=== PATIENT | female | born 1990 | race Caucasian/White ===

== ENCOUNTER 2016-08-02 21:52 | Emergency (ER) | payer MEDICAID, OTHER ==
[~2016-08-02] VITALS: Ht 167.6 cm; Wt 102.8 kg
[2016-08-02 21:58] VITALS: Ht 167.6 cm; Wt 102.8 kg
[2016-08-02 23:20] LABS: URINE BLOOD (Dip) POC 1+ (NEGATIVE)
[2016-08-02] MEDS ORDERED: CEPHALEXIN 500 MG CAP PO STA (23:22)
[2016-08-02] MEDS ORDERED: PHEN-538 PO (23:23)
[2016-08-02] MEDS ORDERED: CEPH-443 PO (23:23)
--- NOTE | 2016-08-02 23:28 | ERD ---
ER Documentation Chief Complaint Date/Time DATE: 08/02/16 TIME: 23:26 Chief Complaint PAINFUL URINATION PELVIC PAIN RADAITING TO BACK HPI This is a 26-year-old female presenting to the emergency department complaining of painful urination, urgency frequency for the past 2 days. Patient also complains of pelvic pain rating it moderate in severity that radiates to her back. Patient admits to having mild hematuria yesterday. She denies any vaginal discharge, fevers. ROS All systems reviewed and are negative except as per history of present illness. Medications Home Meds Active Scripts Phenazopyridine Hcl* (Pyridium*) 200 Mg Tab, 200 MG PO TID Y for URINARY PAIN, # 10 TAB Prov:CELY KENDALL PA-C 08/02/16 Cephalexin* (Keflex*) 500 Mg Capsule, 500 MG PO TID for 10 Days, CAP Prov:CELY KENDALL PA-C 08/02/16 Allergies Allergies: Coded Allergies: No Known Allergy (Unverified , 08/02/16) PMhx/Soc Medical and Surgical Hx: pt denies Medical Hx, pt denies Surgical Hx Hx Alcohol Use: No Hx Substance Use: No Hx Tobacco Use: No Smoking Status: Never smoker Physical Exam Vitals Vital Signs Date Time Temp Pulse Resp B/P Pulse Ox O2 Delivery O2 Flow Rate FiO2 08/02/16 21:58 98.3 79 20 126/71 98 Physical Exam General: well-developed/well-nourished, in no apparent distress, non-toxic appearing HENT: NC/AT Eyes: Conjunctiva normal Neck: Supple Pulm: CTA bilaterally, normal breathing CV: Normal S1S2 GI: Soft, non-distended, normal bowel sounds, TTP on suprapubic region Back: No midline tenderness, no masses, No CVAT Ext: No clubbing, cyanosis, or edema Neuro: Alert and orientated Skin: intact, normal turgor Psych: Normal mood and mentation Results 24 hrs Laboratory Tests Test 08/02/16 23:21 Bedside Urine pH (LAB) 6.5 Bedside Urine Protein (LAB) Trace Bedside Urine Glucose (UA) Negative Bedside Urine Ketones (LAB) Negative Bedside Urine Blood 1+ Bedside Urine Nitrite (LAB) Positive Bedside Urine Leukocyte Esterase (L 2+ Procedures/MDM MDM: 26-year-old female presents to the ER with urinary tract infection. Low suspicion for pyelonephritis, nephrolithiasis, ovarian torsion due to physical examination and diagnostic testing. Urinalysis showed positive nitrite and leukocyte esterase. Urine negative. Patient was given Keflex in the ED. hemodynamically stable for discharge. Prescriptions Keflex and Pyridium have been given to take as directed. Strict precautions were given to return to the ER if not improving as expected or for any worsening signs and symptoms Departure Diagnosis: Primary Impression: UTI (urinary tract infection) Condition: Stable Patient Instructions: Understanding Urinary Tract Infections (UTIs) Referrals: [facility] YOU HAVE RECEIVED A MEDICAL SCREENING EXAM AND THE RESULTS INDICATE THAT YOU DO NOT HAVE A CONDITION THAT REQUIRES URGENT TREATMENT IN THE EMERGENCY DEPARTMENT. FURTHER EVALUATION AND TREATMENT OF YOUR CONDITION CAN WAIT UNTIL YOU ARE SEEN IN YOUR DOCTORS OFFICE WITHIN THE NEXT 1-2 DAYS. IT IS YOUR RESPONSIBILITY TO MAKE AN APPOINTMENT FOR FOLOW-UP CARE. IF YOU HAVE A PRIMARY DOCTOR --you should call your primary doctor and schedule an appointment IF YOU DO NOT HAVE A PRIMARY DOCTOR YOU CAN CALL OUR PHYSICIAN REFERRAL HOTLINE AT IF YOU CAN NOT AFFORD TO SEE A PHYSICIAN YOU CAN CHOSE FROM THE FOLLOWING [facility] [address] [facility]. [facility] [address] [facility] [address] [facility]. [facility] [address] [facility]. [facility] [address] [facility]. [facility]. [address] Additional Instructions: FOLLOW UP WITH YOUR PRIMARY CARE PHYSICIAN TOMORROW.Return to this facility if you are not improving as expected. Take all medicines as directed. Return to this facility if you are not improving as expected. CELY KENDALL PA-C August 02, 2016 23:28
== END 2016-08-03 00:03 | disposition home or self-care (01) ==
LOC: FTE 21:52
DX: N39.0 Urinary tract infection, site not specified (principal); R10.2 Pelvic and perineal pain
CPT/HCPCS: 81003; Z7502; Z7610; 99283